=== PATIENT | male | born 1975 | race African-American/Black ===

== ENCOUNTER 2016-06-22 14:28 | Emergency (ER) | payer MEDICAID ==
[~2016-06-22] VITALS: Ht 180.3 cm; Wt 80.0 kg
[2016-06-22] MEDS ORDERED: MORPHINE SULFATE 4 MG/ML CPJ (NOT FOR IM USE) IV STA (15:36)
[2016-06-22] MEDS ORDERED: SODIUM CHLORIDE 0.9% 1,000 ML IV ONE (15:36)
[2016-06-22] MEDS ORDERED: ONDANSETRON HCL 4MG/2ML VIAL IV STA (15:36)
[2016-06-22] MEDS ORDERED: LEVETIRACETAM 500MG PREMIX 100 ML IV ONE (15:45)
[2016-06-22] MEDS ORDERED: LORAZEPAM 2MG/ML CPJ IV ONE ×2 (15:45→21:00)
[2016-06-22 16:18] LABS: BASOPHILS % 0.4 % (0.0-2.0); DIFFERENTIAL COMMENT 0; HEMATOCRIT. 43.1 % (42.0-52.0); HEMOGLOBIN. 14.9 g/dL (14.0-18.0); LYMPHOCYTES % 22.8 % (20.0-50.0); MEAN CORPUSCULAR HGB CONC 34.5 g/dL (31.0-37.0); MEAN CORPUSCULAR VOLUME 95.7 fL (80.0-94.0); MEAN PLATELET VOLUME 9.8 fl (7.4-10.4); MONOCYTES % 10.4 % (2.0-8.0); NEUTROPHILS % 66.4 % (40.0-76.0); PLATELET 95 x1000/uL (130-400); RED BLOOD CELL COUNT 4.51 mill/uL (4.7-6.1); RED CELL DISTRIBUTION WIDTH 13.1 % (11.6-14.6); WHITE BLOOD COUNT 5.7 x1000/uL (4.5-11.0)
[2016-06-22 16:23] LABS: CHLORIDE 85 mEq/L (98-107); INDEX HEMOLYSI 1 (1-3); INDEX ICTERIC 1 (1-4); INDEX LIPEMIC 1 (1-3)
[2016-06-22 16:27] LABS: ALBUMIN 4.5 g/dL (3.4-5.0); ANION GAP 21; CALCIUM 9.7 mg/dL (8.5-10.1); CARBON DIOXIDE 34 mEq/L (21-32); UREA NITROGEN BLOOD 24 mg/dL (7-21)
[2016-06-22 16:31] LABS: ALANINE AMINOTRANSFERASE 86 IU/L (13-61); CREATINE KINASE 126 IU/L (39-308); ETHANOL BLOOD < 10 mg/dL; PHENYTOIN 0.8 ug/mL (10-20); TROPONIN I < 0.02 ng/mL (0.00-0.04); eGFR > 60 mL/min (>60)
[2016-06-22 16:36] LABS: CARBAMAZEPINE < 0.5 ug/mL (4-12); VALPROIC ACID < 3.0 ug/mL (50-100)
[2016-06-22 16:38] LABS: PHENOBARBITAL < 2.1 ug/mL (15.0-40.0)
[2016-06-22] MEDS ORDERED: FOLIC ACID 1 MG, THIAMINE HCL 100 MG, MVI, ADULT NO.1 10 ML in DEXTROSE 5% WATER 1,000 ML IV ONE ×4 (16:45)
[2016-06-22 19:30] VITALS: BP 142/101
[2016-06-22 19:53] LABS: CLARITY URINE CLEAR (CLEAR); COLOR URINE DARK YELLOW (YELLOW); GLUCOSE URINE NEGATIVE (NEGATIVE); KETONES URINE 4+ (NEGATIVE); LEUKOCYTE ESTERASE URINE TRACE (NEGATIVE); NITRITE URINE NEGATIVE (NEGATIVE); OCCULT BLOOD URINE NEGATIVE (NEGATIVE); PROTEIN URINE TRACE (NEGATIVE); SPECIFIC GRAVITY URINE 1.026 (1.005-1.030)
[2016-06-22 20:10] LABS: BACTERIA URINE TRACE; RBC URINE NONE SEEN /hpf (0-2); SQUAMOUS EPITHELIAL CELL URINE RARE /lpf (RARE/1+); WBC URINE 0-2 /hpf (0-2)
[2016-06-22 20:11] LABS: *AMPHETAMINES SCREEN URINE NEGATIVE (NEGATIVE); *BARBITURATES SCREEN URINE NEGATIVE (NEGATIVE); *BENZODIAZEPINES SCREEN URINE NEGATIVE (NEGATIVE); *COCAINE SCREEN URINE NEGATIVE (NEGATIVE); CANNABINOID URINE SCREEN NEGATIVE (NEGATIVE); ECSTASY MDMA SCREEN URINE NEGATIVE (NEGATIVE); METHADONE URINE SCREEN NEGATIVE (NEGATIVE); OPIATES URINE SCREEN PRESUMTIVE POSITIVE (NEGATIVE); PHENCYCLIDINE URINE SCREEN NEGATIVE (NEGATIVE)
== END 2016-06-22 22:30 | disposition home or self-care (01) ==
LOC: ER 15:18
DX: F10.239 Alcohol dependence with withdrawal, unspecified (principal); R74.8 Abnormal levels of other serum enzymes; E86.0 Dehydration; F32.9 Major depressive disorder, single episode, unspecified; R53.1 Weakness; Y90.0 Blood alcohol level of less than 20 mg/100 ml; Z88.1 Allergy status to other antibiotic agents; Z88.0 Allergy status to penicillin
CPT/HCPCS: 36415; 71010; 74176; 80053; 80156; 80165; 80184; 80185; 80305; 81001; 82550; 84443; 84484; 85025; 93005; 96365; 96366; 96367; 96375; 96376; 99285; G0482; J1953; J2060; J2270; J2405; J3411; J3490; J7030; J7070; Z7610

== ENCOUNTER 2018-02-22 20:11 | Emergency (ER) | payer MEDICAID ==
[~2018-02-22] VITALS: Ht 172.7 cm; Wt 77.0 kg
[2018-02-22 21:23] LABS: BASOPHILS % 0.7 % (0.0-2.0); EOSINOPHILS % 0.2 % (0.0-5.0); HEMATOCRIT. 43.1 % (42.0-52.0); HEMOGLOBIN. 14.7 g/dL (14.0-18.0); LYMPHOCYTES % 28.2 % (20.0-50.0); MEAN CORPUSCULAR HEMOGLOBIN 35.1 pg (28.0-32.0); MEAN CORPUSCULAR VOLUME 102.6 fL (80.0-94.0); MONOCYTES % 8.6 % (2.0-8.0); NEUTROPHILS % 62.3 % (40.0-76.0); PLATELET 98 x1000/uL (130-400)
[2018-02-22 21:30] LABS: CHLORIDE 101 mEq/L (98-107)
[2018-02-22 21:36] VITALS: BP 124/91
[2018-02-22 21:47] LABS: ETHANOL BLOOD 386 mg/dL
[2018-02-22 21:48] LABS: CARBAMAZEPINE < 0.5 ug/mL (4-12); PHENOBARBITAL < 2.1 ug/mL (15.0-40.0); VALPROIC ACID < 3.0 ug/mL (50-100)
== END 2018-02-22 22:50 | disposition left against medical advice (07) ==
LOC: ER 20:11
DX: G40.909 Epilepsy, unspecified, not intractable, without status epilepticus (principal); I10 Essential (primary) hypertension; F17.210 Nicotine dependence, cigarettes, uncomplicated; Z91.14 Patient's other noncompliance with medication regimen; Z88.0 Allergy status to penicillin
CPT/HCPCS: 36415; 80053; 80156; 80165; 80184; 80185; 85025; 99283; G0482

== ENCOUNTER 2018-02-23 00:19 | Emergency (ER) | payer MEDICAID ==
[~2018-02-23] VITALS: Ht 170.2 cm; Wt 77.0 kg
[2018-02-23] MEDS ORDERED: LEVETIRACETAM 500MG PREMIX 100 ML IV ONE (01:00)
[2018-02-23] MEDS ORDERED: SODIUM CHLORIDE 0.9% 1,000 ML IV ONE (02:40)
[2018-02-23] MEDS ORDERED: ONDANSETRON 4MG ODT PO ONE (05:45)
[2018-02-23] MEDS ORDERED: IBUPROFEN 600MG TABLET PO ONE (05:45)
[2018-02-23 06:24] VITALS: BP 133/69
== END 2018-02-23 06:26 | disposition home or self-care (01) ==
LOC: ER 00:19
DX: R56.9 Unspecified convulsions (principal); R42 Dizziness and giddiness; I10 Essential (primary) hypertension; F17.290 Nicotine dependence, other tobacco product, uncomplicated
CPT/HCPCS: 96361; 96365; 99283; J1953; J7030; Q0162